=== PATIENT | female | born 1985 | race Two or more races ===

== ENCOUNTER 2022-10-13 16:24 | Inpatient (IN) | payer OTHER ==
[~2022-10-13] VITALS: Ht 152.4 cm; Wt 62.6 kg
[2022-10-13] MEDS ORDERED: PRENATAL TABLE1 EAC1 PO (17:25)
[2022-10-13] MEDS ORDERED: IRON325 MG PO (17:25)
[2022-10-14] MEDS ORDERED: INTEGRA F CAPS1 EACH (08:26)
== END 2022-10-15 14:10 | disposition home or self-care (01) | DRG 833 ==
LOC: LDR 16:24 → OB/GYN 10-14 09:54
PROVIDERS: ADMIT Obstetrics & Gynecology; ATTEND Obstetrics & Gynecology
PROC: 4A1HXCZ Monitoring of Products of Conception, Cardiac Rate, External Approach (ICD-10-PCS; principal; 2022-10-13)
PROC: BY4GZZZ Ultrasonography of Third Trimester, Multiple Gestation (ICD-10-PCS; 2022-10-14)
PROC: BU4CZZZ Ultrasonography of Uterus and Ovaries (ICD-10-PCS; 2022-10-14)
DX: O47.03 False labor before 37 completed weeks of gestation, third trimester (principal); O26.843 Uterine size-date discrepancy, third trimester; O26.893 Other specified pregnancy related conditions, third trimester; R10.2 Pelvic and perineal pain; O34.211 Maternal care for low transverse scar from previous cesarean delivery; O30.043 Twin pregnancy, dichorionic/diamniotic, third trimester; Z3A.31 31 weeks gestation of pregnancy; Z20.822 Contact with and (suspected) exposure to COVID-19